=== PATIENT | female | born 1970 | race African-American/Black ===

== ENCOUNTER 2019-02-09 10:52 | Emergency (ER) | payer MEDICAID ==
[~2019-02-09] VITALS: Ht 167.6 cm; Wt 91.0 kg
[~2019-02-09 10:52] MED LIST: ACET-2178 PO; AMLO5TAB88 MT; DOCU-150 MT; GABA-531 MT; IBUP-2077 PO; ISON300T19; LEVO1TAB24; PYRI50CA; SENN8.6T71 PO; TRAM50TA3 PO
[2019-02-09 14:08] LABS: BASOPHILS % 1.5 % (0.0-2.0); EOSINOPHILS % 2.1 % (0.0-5.0); HEMATOCRIT. 40.6 % (36.0-48.0); HEMOGLOBIN. 13.1 g/dL (12.0-16.0); LYMPHOCYTES % 35.9 % (20.0-50.0); MEAN CORPUSCULAR HEMOGLOBIN 26.5 pg (28.0-32.0); MEAN CORPUSCULAR VOLUME 81.8 fL (81.0-99.0); MEAN PLATELET VOLUME 10.3 fl (7.4-10.4); MONOCYTES % 6.4 % (2.0-8.0); NEUTROPHILS % 54.1 % (40.0-76.0); PLATELET 203 x1000/uL (130-400); RED BLOOD CELL COUNT 4.96 mill/uL (4.2-5.4); RED CELL DISTRIBUTION WIDTH 13.6 % (11.6-14.6)
[2019-02-09 14:13] LABS: CHLORIDE 105 mEq/L (98-107)
[2019-02-09 14:14] LABS: PROTHROMBIN TIME 10.5 sec (9.6-11.0)
[2019-02-09 14:20] LABS: CLARITY URINE CLEAR (CLEAR); COLOR URINE DARK YELLOW (YELLOW); KETONES URINE TRACE (NEGATIVE); LEUKOCYTE ESTERASE URINE TRACE (NEGATIVE); NITRITE URINE NEGATIVE (NEGATIVE); OCCULT BLOOD URINE NEGATIVE (NEGATIVE); PH URINE 5.5 (4.5-8.0); PROTEIN URINE TRACE (NEGATIVE); SPECIFIC GRAVITY URINE 1.036 (1.005-1.030); UROBILINOGEN URINE 0.2 E.U./dL (0.2-1.0)
[2019-02-09] MEDS ORDERED: MORPHINE SULFATE 4 MG/ML CPJ (NOT FOR IM USE) IV ONE (14:30)
[2019-02-09 14:40] LABS: HCG SCREEN NEGATIVE
[2019-02-09] MEDS ORDERED: KETOROLAC 30MG/ML VIAL IV ONE (14:45)
[2019-02-09 16:00] VITALS: BP 126/63
== END 2019-02-09 16:50 | disposition home or self-care (01) ==
LOC: ER 10:52
DX: N39.0 Urinary tract infection, site not specified (principal); Z90.710 Acquired absence of both cervix and uterus
CPT/HCPCS: 36415; 71045; 80053; 81003; 81025; 84703; 85025; 85610; 96374; 96375; 99284; J1885; J2270

== ENCOUNTER 2022-08-24 10:19 | Emergency (ER) | payer MEDICAID ==
[~2022-08-24] VITALS: Ht 162.6 cm; Wt 83.0 kg
[~2022-08-24 10:19] MED LIST changes: -ACET-2178 PO; -GABA-531 MT; +GABA-532 MT; +TOPUD PO
[2022-08-24 10:21] VITALS: BP 158/103
[2022-08-24] MEDS ORDERED: MAGNESIUM/ALUMINUM HYDROXIDE/SIMETHICONE 30ML UDC PO STA (11:24)
[2022-08-24] MEDS ORDERED: DICYCLOMINE 10 MG/5 ML ORAL SYR PO STA (11:24)
[2022-08-24 12:59] LABS: CLARITY URINE CLOUDY (CLEAR); COLOR URINE YELLOW (YELLOW); KETONES URINE TRACE (NEGATIVE); LEUKOCYTE ESTERASE URINE NEGATIVE (NEGATIVE); NITRITE URINE NEGATIVE (NEGATIVE); OCCULT BLOOD URINE NEGATIVE (NEGATIVE); PROTEIN URINE TRACE (NEGATIVE); SPECIFIC GRAVITY URINE 1.024 (1.005-1.030)
[2022-08-24 13:01] LABS: BASOPHILS % 0.8 % (0.0-2.0); EOSINOPHILS % 1.7 % (0.0-5.0); HEMATOCRIT. 37.9 % (36.0-48.0); HEMOGLOBIN. 12.4 g/dL (12.0-16.0); LYMPHOCYTES % 30.8 % (20.0-50.0); MEAN CORPUSCULAR HEMOGLOBIN 26.2 pg (28.0-32.0); MEAN PLATELET VOLUME 9.7 fl (7.4-10.4); MONOCYTES % 6.5 % (2.0-8.0); NEUTROPHILS % 60.2 % (40.0-76.0); PLATELET 228 x1000/uL (130-400); RED BLOOD CELL COUNT 4.73 mill/uL (4.2-5.4); RED CELL DISTRIBUTION WIDTH 13.1 % (11.6-14.6)
[2022-08-24 13:05] LABS: CHLORIDE 106 mEq/L (98-107)
== END 2022-08-24 14:20 | disposition home or self-care (01) ==
LOC: ER 10:19
DX: R10.13 Epigastric pain (principal); R53.1 Weakness; K76.0 Fatty (change of) liver, not elsewhere classified; Z90.710 Acquired absence of both cervix and uterus
CPT/HCPCS: 36415; 76705; 80053; 81003; 81025; 85025; 99284